=== PATIENT | female | born 2000 | race Caucasian/White ===

== ENCOUNTER 2022-04-13 23:38 | Emergency (ER) | payer SELFPAY ==
[~2022-04-13] VITALS: Ht 160 cm; Wt 104.0 kg
[2022-04-14 01:05] LABS: BILIRUBIN,URINE NEGATIVE (NEGATIVE); CLARITY,URINE CLEAR; COLOR,URINE YELLOW; GLUCOSE, URINE (UA) NEGATIVE (NEGATIVE); KETONES,URINE NEGATIVE (NEGATIVE); LEUKOCYTE ESTERASE ,URINE NEGATIVE (NEGATIVE); NITRITE,URINE NEGATIVE (NEGATIVE); PROTEIN,URINE 1+ (NEGATIVE)
[2022-04-14 01:21] LABS: BACTERIA,URINE FEW /HPF; WBC,URINE 0 /HPF
[2022-04-14] MEDS ORDERED: ONDA4TAB11 PO (01:43)
--- NOTE | 2022-04-14 01:43 | ED General ---
General Chief Complaint: Abdominal/GI Problems Stated Complaint: SHAKING,VOMITING,POSS FEVER,SOB,SORE THROAT Nursing Triage Note: PT PRESENTS WITH C/O LUQ PAIN AND VOMITING THAT STARTED AT 2300. REPORTS INCREASED FATIGUE SINCE THAT TIME AND THROAT BURNING Source of Information: Patient Past Hoekyxa-Qnisaf-Dldmja Hx Patient Social History Tobacco Use?: No Smokeless Tobacco Frequency: Former User Substance use?: Yes Substance type: Marijuana Alcohol Use?: Yes Alcohol Frequency: Rarely Pt feels they are or have been: No Immunizations Up To Date Influenza Vaccine Up-to-Date: No; Not Current Past Medical History Last Menstrual Period: Apr 08, 2022 Physical Exam Vital Signs Vital Signs - First Documented 04/14/22 00:38 Pulse 88 Resp 18 B/P (MAP) 141/83 (102) Pulse Ox 99 O2 Delivery Room Air Capillary Refill : Height, Weight, BMI Height: '" Weight: lbs. oz. kg; 40.00 BMI Method: Progress/Results/Core Measures Suspected Sepsis SIRS Temperature: Pulse: 88 Respiratory Rate: 18 Blood Pressure 141 /83 Mean: 102 Results/Orders Lab Results Laboratory Tests Test 04/14/22 00:46 04/14/22 00:47 Range/Units Influenza Type A (RT-PCR) Not Detected Not Detecte Influenza Type B (RT-PCR) Not Detected Not Detecte SARS-CoV-2 RNA (RT-PCR) Not Detected Not Detecte Group A Streptococcus Screen NEGATIVE NEGATIVE Urine Color YELLOW Urine Clarity CLEAR Urine pH 6.0 5-9 Urine Specific [place] >=1.030 1.016-1.022 Urine Protein 1+ H NEGATIVE Urine Glucose (UA) NEGATIVE NEGATIVE Urine Ketones NEGATIVE NEGATIVE Urine Nitrite NEGATIVE NEGATIVE Urine Bilirubin NEGATIVE NEGATIVE Urine Urobilinogen 0.2 < = 1.0 MG/DL Urine Leukocyte Esterase NEGATIVE NEGATIVE Urine RBC (Auto) TRACE-I H NEGATIVE Urine RBC 5-10 H /HPF Urine WBC 0 /HPF Urine Squamous Epithelial Cells 2-5 /HPF Urine Crystals NONE /LPF Urine Bacteria FEW H /HPF Urine Casts NONE /LPF Urine Mucus MODERATE H /LPF Urine Culture Indicated NO My Orders Orders - PEPE BISHOP DO Rapid Strep A Screen (04/14/22 00:38) Covid 19 Inhouse Test (04/14/22 00:38) Influenza A And B By Pcr (04/14/22 00:38) Isolation Central Supply Req (04/14/22 00:38) Urine Bedside (04/14/22 00:38) Ua Culture If Indicated (04/14/22 00:38) Vital Signs/I&O 04/14/22 00:38 Pulse 88 Resp 18 B/P (MAP) 141/83 (102) Pulse Ox 99 O2 Delivery Room Air Capillary Refill : Blood Pressure Mean: 102 Departure Impression Primary Impression: COVID LIKE ILLNESS Disposition: HOME, SELF-CARE Condition: Stable Departure-Patient Inst. Decision time for Depature: 01:40 Referrals: NO,LOCAL PHYSICIAN (PCP) Primary Care Physician Patient Instructions: COVID-19 Home Care/Discharge, COVID-19 Tests, Preventing the Spread of an Infectious Disease Add. Discharge Instructions: TYLENOL AND MOTRIN NEEDED FOR PAIN OR FEVER LOTS OF CLEAR LIQUIDS QUARANTINE YOURSELF AND ALL HOUSEHOLD AND CLOSE CONTACTS, AND YOU NEED TO BE RETESTED IN 2-3 DAYS--YOU MAY GO TO [facility], OR YOUR [facility] All discharge instructions reviewed with patient and/or family. Voiced understanding. Scripts Ondansetron (Ondansetron Odt) 4 Mg Tab.rapdis 4 MG PO Q4H for Nausea/Vomiting, #10 TAB Prov: PEPE BISHOP DO 04/14/22 PEPE BISHOP DO Apr 14, 2022 01:43
[2022-04-14 02:03] VITALS: BP 134/78
== END 2022-04-14 02:03 | disposition home or self-care (01) ==
LOC: ER 23:43
DX: R06.02 Shortness of breath (principal); R10.12 Left upper quadrant pain; R11.10 Vomiting, unspecified; J02.9 Acute pharyngitis, unspecified; R53.83 Other fatigue; Z20.822 Contact with and (suspected) exposure to COVID-19; Z87.891 Personal history of nicotine dependence
CPT/HCPCS: 81000; 84703; 87430; 87636; 99283